=== PATIENT | male | born 1970 | race Caucasian/White ===

== ENCOUNTER 2019-02-10 13:38 | Emergency (ER) | payer BC ==
[~2019-02-10] VITALS: Ht 193 cm; Wt 114.3 kg
[2019-02-10 13:54] VITALS: BP_SYST 148
--- NOTE | 2019-02-10 14:00 | NUR ---
Patient triaged and placed in waiting room. VSS and patient appears in no acute distress at this time. Accompanied by self, awaiting available bed, and MD notified of need for MSE.
--- NOTE | 2019-02-10 14:08 | NUR ---
Patient to ER bed 3 to gown for evaluation. Side rails up. Report given to DONY Spann.
--- NOTE | 2019-02-10 14:15 | NUR ---
Patient presented to ER with C/O Right knee swelling & pain w/abrasion Left ankle swelling with bruising. Patient A&Ox4, ambulatory to ER, pain 11/19, denies N/V. Patient states he was playing flag football yesterday, hit the ground while running causing abrasion to right knee. Patient states this morning pain and swelling to right knee & right Ankle bruising and swelling.
--- NOTE | 2019-02-10 14:20 | NUR ---
ER Dr. Morales at bedside examining patient.
[2019-02-10 14:37] VITALS: BP_SYST 137
--- NOTE | 2019-02-10 14:38 | NUR ---
Patient given written and verbal discharge instructions and verbalizes understanding. ER MD discussed with patient the results and treatment provided. Patient in stable condition. ID arm band removed. Rx of NONE given. Patient educated on pain management and to follow up with PMD. Pain Scale 0/10. Opportunity for questions provided and answered. Medication side effect fact sheet provided.
== END 2019-02-10 14:37 | disposition still patient (30) ==
LOC: SED 13:38
DX: S93.401A Sprain of unspecified ligament of right ankle, initial encounter (principal); R03.0 Elevated blood-pressure reading, without diagnosis of hypertension; X50.9XXA Other and unspecified overexertion or strenuous movements or postures, initial encounter; Y93.89 Activity, other specified; Y92.89 Other specified places as the place of occurrence of the external cause; Y99.8 Other external cause status
CPT/HCPCS: 99281